=== PATIENT | female | born 1940 | race Caucasian/White ===

== ENCOUNTER 2017-02-03 02:21 | Emergency (ER) | payer BC ==
[2017-02-03] MEDS ORDERED: HYDROmorphone 1 MG/ML Syringe IVPUSH ONE ×2 (02:42→04:35)
[2017-02-03] MEDS ORDERED: Metoclopramide 10 MG/2 ML SDV IVPUSH ONE (02:43)
[2017-02-03] MEDS ORDERED: Sodium Chloride 0.9% 1,000 ML IV ONE (02:44)
[2017-02-03] MEDS ORDERED: Iopamidol 612 MG/ML 75 ML Bottle IVPUSH ONE (03:11)
[2017-02-03 04:38] VITALS: BP 146/81
--- NOTE | 2017-02-03 04:40 | EDM.PDOC ---
ED HPI GI/ABDOMINAL - General Chief Complaint: Abdominal Pain Stated Complaint: ABD PAIN Time Seen by Provider: 02/03/17 02:30 Source of Information: Reports: Patient History Limitations: Reports: No limitations - History of Present Illness INITIAL COMMENTS - FREE TEXT/NARRATIVE: c/o sever lower abdominal pain worsening. Started yesterday with ache tonight severe intermittent pressure cramping. Nause no vomiting, no fever, 3 loose stools yesterday. non tonight. Hx colon resection 6 months ago for cancer Location: RLQ Quality: Reports: ache, cramping, fullness Severity: severe - Related Data Allergies/ADRs: Allergies Allergy/AdvReac Type Severity Reaction Status Date / Time amoxicillin Allergy Cannot Verified 02/03/17 02:42 Remember cefuroxime Allergy Cannot Verified 02/03/17 02:42 Remember levofloxacin Allergy Cannot Verified 02/03/17 02:42 Remember ofloxacin [From Ocuflox] Allergy Cannot Verified 02/03/17 02:42 Remember sulfamethoxazole Allergy Cannot Verified 02/03/17 02:42 [From Bactrim] Remember trimethoprim [From Bactrim] Allergy Cannot Verified 02/03/17 02:42 Remember tramadol AdvReac Mild Cannot Verified 02/03/17 02:42 Remember Home Meds: Home Meds Fluticasone/Salmeterol [Advair 250-50 Diskus] 1 puff INH BID 03/19/15 [History] Fortify 1 tab PO DAILY 03/19/15 [History] Levothyroxine 125 mcg PO ACBREAKFAST 03/19/15 [History] Lisinopril 10 mg PO DAILY 03/19/15 [History] Omeprazole [Prilosec] 20 mg PO DAILY 03/19/15 [History] Ubidecarenone [Coq10] 200 mg PO DAILY 03/19/15 [History] atorvaSTATin [Lipitor] 10 mg PO DAILY 03/19/15 [History] Lidocaine [Lidocaine] 1 patch TOP DAILY 08/04/16 [History] Ondansetron [Ondansetron ODT] 4 mg PO Q6HR 08/04/16 [History] traMADol HCl [Tramadol HCl] 50 mg PO Q6HR PRN 08/04/16 [History] Past Medical History Cardiovascular History: Reports: High cholesterol Respiratory History: Reports: Asthma Gastrointestinal History: Reports: GERD, Other (see below) Other Gastrointestinal History: gastric Ulcer Other Genitourinary History: post operative urinary retention Other OB/BYN History: Total hysterectomy Endocrine/Metabolic History: Reports: Hypothyroidism - Past Surgical History Other GI Surgeries/Procedures: 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 small bowel obstruction Social & Family History - Tobacco Use Smoking Status *Q: Never Smoker - Caffeine Use Caffeine Use: Reports: Coffee, Tea - Alcohol Use Days Per Week of Alcohol Use: 5 Number of Drinks Per Day: 1 Total Drinks Per Week: 5 Date of Last Drink: 02/02/17 - Recreational Drug Use Recreational Drug Use: No Drug Use in Last 12 Months: No ED ROS GENERAL - Review of Systems Review Of Systems: See Below Constitutional: Reports: decreased appetite HEENT: Reports: No symptoms Respiratory: Reports: No Symptoms Cardiovascular: Reports: No symptoms GI/Abdominal: Reports: Abdominal pain (dull ache since yesterday, tonight onset if intermittent severe pain RLQ, [place] no vomiting), Diarrhea (3 loose stools yesterday), Distension (mild), Other (hx colon resection 6 months ago for neuroendocrine tumor) : Reports: no symptoms Skin: Reports: no symptoms Neurological: Reports: No Symptoms Psychiatric: Reports: Anxiety ED EXAM, GI/ABD - Physical Exam Exam: See Below Exam Limited By: No limitations General Appearance: alert, severe distress Ears: normal external exam Nose: normal inspection Throat/Mouth: Normal inspection Head: atraumatic, normocephalic Neck: normal inspection Respiratory/Chest: no respiratory distress, lungs clear, normal breath sounds Cardiovascular: normal peripheral pulses, regular rate, rhythm GI/Abdominal: hypoactive bowel sounds, tenderness (greatest right lower quad with light palpation), distention (mild) Back Exam: normal inspection. No: CVA tenderness (L), CVA tenderness (R) Extremities: normal inspection Neurological: alert, oriented Psychiatric: normal affect Skin Exam: Warm, Dry, Intact, Normal color Course - Vital Signs Last Recorded V/S: Last Vital Signs Temp 97.4 F 02/03/17 04:37 Pulse 94 02/03/17 04:37 Resp 17 02/03/17 04:37 BP 146/81 H 02/03/17 04:37 Pulse Ox 100 02/03/17 04:37 - Orders/Labs/Meds Orders: Active Orders 24 hr Category Date Time Status Abdomen Pelvis w Cont [CT] Urgent Exams 02/03/17 02:40 Taken Sodium Chloride 0.9% [Normal Saline] 1,000 ml Med 02/03/17 02:44 Active IV .BOLUS Medication Orders Sodium Chloride (Normal Saline) 1,000 mls @ 250 mls/hr IV .BOLUS ONE Stop: 02/03/17 06:43 Last Admin: 02/03/17 02:48 Dose: 250 mls/hr Labs: Laboratory Tests 02/03/17 02/03/17 02/03/17 Range/Units 02:40 02:40 02:40 WBC 7.2 (5.0-10.0) 10^3/uL RBC 4.71 (4.2-5.4) 10^6/uL Hgb 14.6 (12.0-16.0) g/dL Hct 43.2 (37.0-47.0) % MCV 91.7 (80-100) fL MCH 31.0 (27.0-34.0) pg MCHC 33.8 (33.0-35.0) g/dL Plt Count 196 (150-450) 10^3/uL Neut % (Auto) 61.0 (42.2-75.2) % Lymph % (Auto) 24.9 (20.5-50.1) % [place] % (Auto) 10.4 H (2-8) % Eos % (Auto) 2.9 (1.0-3.0) % Baso % (Auto) 0.8 (0.0-1.0) % Sodium 139 (135-145) mmol/L Potassium 3.9 (3.6-5.0) mmol/L Chloride 106 (101-111) mmol/L Carbon Dioxide 27.0 (21.0-31.0) mmol/L Anion Gap 9.9 BUN 18 (7-18) mg/dL Creatinine 1.1 (0.6-1.3) mg/dL Est Cr Clr Drug Dosing 36.40 mL/min Estimated GFR (MDRD) 48 BUN/Creatinine Ratio 16.36 Glucose 109 H (74-105) mg/dL Lactic Acid 1.1 (0.5-2.2) mmol/L Calcium 8.8 (8.4-10.2) mg/dl Total Bilirubin 0.6 (0.2-1.0) mg/dL AST 20 (10-42) IU/L ALT 15 (10-60) IU/L Alkaline Phosphatase 75 (42-121) IU/L Total Protein 6.4 L (6.7-8.2) g/dl Albumin 3.6 (3.2-5.5) g/dl Globulin 2.8 Albumin/Globulin Ratio 1.29 Amylase 55 (28-100) U/L Lipase 17 L (22-51) U/L Urine Color (YELLOW) Urine Appearance (CLEAR) Urine pH (5.0-9.0) Ur Specific [place] (1.005-1.030) Urine Protein (NEGATIVE) Urine Glucose (UA) (NEGATIVE) Urine Ketones (NEGATIVE) Urine Occult Blood (NEGATIVE) Urine Nitrite (NEGATIVE) Urine Bilirubin (NEGATIVE) Urine Urobilinogen (0.2-1.0) mg/dL Ur Leukocyte Esterase (NEGATIVE) Urine RBC /HPF Urine WBC (0-5/HPF) /HPF Ur Epithelial Cells /HPF 02/03/17 Range/Units 04:00 WBC (5.0-10.0) 10^3/uL RBC (4.2-5.4) 10^6/uL Hgb (12.0-16.0) g/dL Hct (37.0-47.0) % MCV (80-100) fL MCH (27.0-34.0) pg MCHC (33.0-35.0) g/dL Plt Count (150-450) 10^3/uL Neut % (Auto) (42.2-75.2) % Lymph % (Auto) (20.5-50.1) % [place] % (Auto) (2-8) % Eos % (Auto) (1.0-3.0) % Baso % (Auto) (0.0-1.0) % Sodium (135-145) mmol/L Potassium (3.6-5.0) mmol/L Chloride (101-111) mmol/L Carbon Dioxide (21.0-31.0) mmol/L Anion Gap BUN (7-18) mg/dL Creatinine (0.6-1.3) mg/dL Est Cr Clr Drug Dosing mL/min Estimated GFR (MDRD) BUN/Creatinine Ratio Glucose (74-105) mg/dL Lactic Acid (0.5-2.2) mmol/L Calcium (8.4-10.2) mg/dl Total Bilirubin (0.2-1.0) mg/dL AST (10-42) IU/L ALT (10-60) IU/L Alkaline Phosphatase (42-121) IU/L Total Protein (6.7-8.2) g/dl Albumin (3.2-5.5) g/dl Globulin Albumin/Globulin Ratio Amylase (28-100) U/L Lipase (22-51) U/L Urine Color Yellow (YELLOW) Urine Appearance Clear (CLEAR) Urine pH 6.5 (5.0-9.0) Ur Specific [place] 1.010 (1.005-1.030) Urine Protein Negative (NEGATIVE) Urine Glucose (UA) Negative (NEGATIVE) Urine Ketones Negative (NEGATIVE) Urine Occult Blood Negative (NEGATIVE) Urine Nitrite Negative (NEGATIVE) Urine Bilirubin Negative (NEGATIVE) Urine Urobilinogen 0.2 (0.2-1.0) mg/dL Ur Leukocyte Esterase Small H (NEGATIVE) Urine RBC 0-5 /HPF Urine WBC 5-10 H (0-5/HPF) /HPF Ur Epithelial Cells Few /HPF Meds: Medications Generic Name Dose Route Start Last Admin Trade Name Freq PRN Reason Stop Dose Admin Sodium Chloride 1,000 mls @ 250 mls/hr 02/03/17 02:44 02/03/17 02:48 Normal Saline IV 02/03/17 06:43 250 mls/hr .BOLUS ONE Administration Discontinued Medications Generic Name Dose Route Start Last Admin Trade Name Freq PRN Reason Stop Dose Admin Hydromorphone HCl 1 mg 02/03/17 02:42 02/03/17 02:47 Dilaudid IVPUSH 02/03/17 02:43 1 mg ONETIME ONE Administration Hydromorphone HCl 1 mg 02/03/17 04:35 02/03/17 04:40 Dilaudid IVPUSH 02/03/17 04:36 1 mg ONETIME ONE Administration Iopamidol 75 ml 02/03/17 03:11 02/03/17 03:39 Isovue-300 (61%) IVPUSH 02/03/17 03:12 75 ml ONETIME ONE Administration Metoclopramide HCl 10 mg 02/03/17 02:43 02/03/17 02:47 Reglan IVPUSH 02/03/17 02:44 10 mg ONETIME ONE Administration - Radiology Interpretation Free Text/Narrative:: Small Bowel obstruction on CT, stable liver nodule, small ascites. - Re-Assessments/Exams Free Text/Narrative Re-Assessment/Exam: Pain improved with Dilaudid, able to rest while awaiting CT results. TC consult Dr. Esparza, accepting of patient in transfer. Vitals stable. No vomiting. Pain returning repeat Dilaudid. Transfer via [facility]> Departure - Departure Time of Disposition: 04:49 Disposition: DC/Tfer to Acute Hospital 02 Condition: undetermined Clinical Impression: Small bowel obstruction, History of malignant neuroendocrine neoplasm Forms: ED Department Discharge - My Orders Last 24 Hours: My Active Orders 02/03/17 02:40 Abdomen Pelvis w Cont [CT] Urgent 02/03/17 02:44 Sodium Chloride 0.9% [Normal Saline] 1,000 ml IV .BOLUS - Assessment/Plan Last 24 Hours: My Active Orders 02/03/17 02:40 Abdomen Pelvis w Cont [CT] Urgent 02/03/17 02:44 Sodium Chloride 0.9% [Normal Saline] 1,000 ml IV .BOLUS
== END 2017-02-03 05:05 ==
LOC: DL.ED 02:21
DX: K56.60 Unspecified intestinal obstruction (principal); E78.00 Pure hypercholesterolemia, unspecified; J45.909 Unspecified asthma, uncomplicated; K21.9 Gastro-esophageal reflux disease without esophagitis; E03.9 Hypothyroidism, unspecified; Z85.038 Personal history of other malignant neoplasm of large intestine; Z88.8 Allergy status to other drugs, medicaments and biological substances; Z79.899 Other long term (current) drug therapy
CPT/HCPCS: 36415; 74177; 80053; 81001; 82150; 83605; 83690; 85025; 96365; 96366; 96375; 96376; 99285; J1170; J2765; J7030; Q9967

== ENCOUNTER 2018-06-23 00:13 | Emergency (ER) | payer BC ==
[2018-06-23 00:21] VITALS: BP 149/91
[2018-06-23] MEDS ORDERED: Sodium Chloride 0.9% 1,000 ML IV SCH (00:30)
--- NOTE | 2018-06-23 00:47 | EDM.PDOC ---
ED HPI GENERAL MEDICAL PROBLEM - General Chief Complaint: Abdominal Pain Stated Complaint: STOMACH PAIN [id number] Time Seen by Provider: 06/23/18 00:44 Source of Information: Reports: Patient History Limitations: Reports: No Limitations - History of Present Illness INITIAL COMMENTS - FREE TEXT/NARRATIVE: onset RLQ pain just like last time when she had a bowel obstruction from a closing off where the ends joined up and sent to [facility]. had h/o cancer with 36" removal. - Related Data Allergies Allergy/AdvReac Type Severity Reaction Status Date / Time amoxicillin Allergy Cannot Verified 02/03/17 02:42 Remember cefuroxime Allergy Cannot Verified 02/03/17 02:42 Remember levofloxacin Allergy Cannot Verified 02/03/17 02:42 Remember ofloxacin [From Ocuflox] Allergy Cannot Verified 02/03/17 02:42 Remember sulfamethoxazole Allergy Cannot Verified 02/03/17 02:42 [From Bactrim] Remember trimethoprim [From Bactrim] Allergy Cannot Verified 02/03/17 02:42 Remember tramadol AdvReac Mild Cannot Verified 02/03/17 02:42 Remember Home Meds: Home Meds Fluticasone/Salmeterol [Advair 250-50 Diskus] 1 puff INH BID 03/19/15 [History] Fortify 1 tab PO DAILY 03/19/15 [History] Levothyroxine 125 mcg PO ACBREAKFAST 03/19/15 [History] Lisinopril 10 mg PO DAILY 03/19/15 [History] Omeprazole [Prilosec] 20 mg PO DAILY 03/19/15 [History] Ubidecarenone [Coq10] 200 mg PO DAILY 03/19/15 [History] atorvaSTATin [Lipitor] 10 mg PO DAILY 03/19/15 [History] Lidocaine 1 patch TOP DAILY 08/04/16 [History] Ondansetron [Ondansetron ODT] 4 mg PO Q6HR 08/04/16 [History] traMADol HCl [Tramadol HCl] 50 mg PO Q6HR PRN 08/04/16 [History] Past Medical History Cardiovascular History: Reports: High Cholesterol Respiratory History: Reports: Asthma Gastrointestinal History: Reports: GERD Other Gastrointestinal History: gastric Ulcer Other Genitourinary History: post operative urinary retention Other [employer] History: Total hysterectomy Endocrine/Metabolic History: Reports: Hypothyroidism Oncologic (Cancer) History: Reports: Colon, Liver - Past Surgical History GI Surgical History: Reports: Small Bowel Female Surgical History: Reports: Hysterectomy Social & Family History - Tobacco Use Smoking Status *Q: Never Smoker Second Hand Smoke Exposure: No - Caffeine Use Caffeine Use: Reports: Coffee, Tea - Recreational Drug Use Recreational Drug Use: No ED ROS GENERAL - Review of Systems Review Of Systems: ROS reveals no pertinent complaints other than HPI. ED EXAM, GI/ABD - Physical Exam Exam: See Below Exam Limited By: No Limitations General Appearance: Alert, WD/WN, Mild Distress, Moderate Distress, Other (pain) Ears: Hearing Grossly Normal Throat/Mouth: Normal Voice, No Airway Compromise Head: Atraumatic Neck: Non-Tender, Full Range of Motion Respiratory/Chest: No Respiratory Distress Cardiovascular: Regular Rate, Rhythm GI/Abdominal Exam: Tender, Other (BS hyper). No: Distended, Guarding, Rigid, Rebound Neurological: Alert, Oriented, Normal Cognition, Normal Gait, No Motor/Sensory Deficits Psychiatric: Tearful Skin Exam: Warm, Dry, Normal Color Lymphatic: No Adenopathy Course - Vital Signs Last Recorded V/S: Last Vital Signs Temp 36.6 C 06/23/18 00:16 Pulse 96 06/23/18 00:16 Resp 18 06/23/18 00:16 BP 149/91 H 06/23/18 00:16 Pulse Ox 99 06/23/18 00:16 - Orders/Labs/Meds Orders: Active Orders 24 hr Category Date Time Status Dicyclomine [Bentyl] Med 06/23/18 02:53 Discontinued 20 mg PO ONETIME ONE Sodium Chloride 0.9% [Normal Saline] 1,000 ml Med 06/23/18 00:30 Active IV ASDIRECTED Medication Orders Dicyclomine HCl (Bentyl) 20 mg PO ONETIME ONE Stop: 06/23/18 02:54 Sodium Chloride (Normal Saline) 1,000 mls @ 500 mls/hr IV ASDIRECTED CANDICE Last Admin: 06/23/18 00:44 Dose: 500 mls/hr Labs: Laboratory Tests 06/23/18 06/23/18 06/23/18 Range/Units 00:23 00:23 00:23 WBC 6.6 (5.0-10.0) 10^3/uL RBC 4.75 (4.2-5.4) 10^6/uL Hgb 14.5 (12.0-16.0) g/dL Hct 43.6 (37.0-47.0) % MCV 91.8 (80-100) fL MCH 30.5 (27.0-34.0) pg MCHC 33.3 (33.0-35.0) g/dL Plt Count 208 (150-450) 10^3/uL Neut % (Auto) 56.6 (42.2-75.2) % Lymph % (Auto) 30.7 (20.5-50.1) % [place] % (Auto) 9.7 H (2-8) % Eos % (Auto) 2.7 (1.0-3.0) % Baso % (Auto) 0.3 (0.0-1.0) % Sodium 140 (135-145) mmol/L Potassium 4.0 (3.6-5.0) mmol/L Chloride 104 (101-111) mmol/L Carbon Dioxide 28.0 (21.0-31.0) mmol/L Anion Gap 12.0 BUN 17 (7-18) mg/dL Creatinine 1.1 (0.6-1.3) mg/dL Est Cr Clr Drug Dosing 35.81 mL/min Estimated GFR (MDRD) 48 BUN/Creatinine Ratio 15.45 Glucose 103 (74-105) mg/dL Calcium 9.0 (8.4-10.2) mg/dl Total Bilirubin 0.6 (0.2-1.0) mg/dL AST 19 (10-42) IU/L ALT 15 (10-60) IU/L Alkaline Phosphatase 74 (42-121) IU/L C-Reactive Protein 0.5 (0.0-1.3) mg/dL Total Protein 7.0 (6.7-8.2) g/dl Albumin 4.0 (3.2-5.5) g/dl Globulin 3.0 Albumin/Globulin Ratio 1.33 Meds: Medications Generic Name Dose Route Start Last Admin Trade Name Freq PRN Reason Stop Dose Admin Dicyclomine HCl 20 mg 06/23/18 02:53 Bentyl PO 06/23/18 02:54 ONETIME ONE Sodium Chloride 1,000 mls @ 500 mls/hr 06/23/18 00:30 06/23/18 00:44 Normal Saline IV 500 mls/hr ASDIRECTED CANDICE Administration Discontinued Medications Generic Name Dose Route Start Last Admin Trade Name Zainab PRN Reason Stop Dose Admin Iopamidol 100 ml 06/23/18 01:11 06/23/18 01:58 Isovue-300 (61%) IVPUSH 06/23/18 01:12 100 ml ONETIME ONE Administration - Re-Assessments/Exams Free Text/Narrative Re-Assessment/Exam: 06/23/18 00:46 re-exam; states pain suddenly gone 06/23/18 02:58 results discussed with pt who remains mostly pain free with an occasional cramp. Departure - Departure Time of Disposition: 02:58 Disposition: Home, Self-Care 01 Condition: Fair Clinical Impression: Pain in the abdomen Qualifiers: Abdominal location: right lower quadrant Qualified Code(s): R10.31 - Right lower quadrant pain - Discharge Information Forms: ED Department Discharge Additional Instructions: 1) avoid solid foods next 4 to 5 days 2) have broth, juice, soft diet 3) recheck if there is any change or concern - My Orders Last 24 Hours: My Active Orders 06/23/18 00:30 Sodium Chloride 0.9% [Normal Saline] 1,000 ml IV ASDIRECTED 06/23/18 02:53 Dicyclomine [Bentyl] 20 mg PO ONETIME ONE - Assessment/Plan Last 24 Hours: My Active Orders 06/23/18 00:30 Sodium Chloride 0.9% [Normal Saline] 1,000 ml IV ASDIRECTED 06/23/18 02:53 Dicyclomine [Bentyl] 20 mg PO ONETIME ONE
[2018-06-23] MEDS ORDERED: Iopamidol 612 MG/ML 100 ML Bottle IVPUSH ONE (01:11)
[2018-06-23] MEDS ORDERED: Dicyclomine 10 MG Cap PO ONE (02:53)
== END 2018-06-23 03:11 | disposition home or self-care (01) ==
LOC: DL.ED 00:13
DX: R10.31 Right lower quadrant pain (principal); Z88.1 Allergy status to other antibiotic agents; Z88.5 Allergy status to narcotic agent; Z88.2 Allergy status to sulfonamides; Z79.899 Other long term (current) drug therapy; Z90.710 Acquired absence of both cervix and uterus
CPT/HCPCS: 36415; 74177; 80053; 85025; 86140; 96360; 96361; 99284; A9270; J7030; Q9967

== ENCOUNTER → 2019-01-18 | Outpatient (CLI) | payer BC ==
[~2019-01-18] MED LIST: Barium Sulfate w/v 2.1% Oral Susp 450 ML Bottle PO ONE; Iopamidol 612 MG/ML 100 ML Bottle IVPUSH ONE
--- NOTE | 2019-01-20 13:19 | CT ---
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 "ablation" 2 years ago). Reevaluate please. Scan technique: Volume acquisition of data 3 phase exam of the abdomen and pelvis obtained after oral ingestion 2 bottles of Redicat barium and before/during/after intravenous infusion of 98 cc nonionic Isovue 300 contrast (4 cc/s via injector) while patient was lying supine on the Siemens multislice scanner [place], [place]. All data archived in the PACS system for storage, reformatting axial/sagittal/coronal planes and study. (11 CT exams since May 2016) Interpretation: 1. Dependent gallbladder "sludge" and/or tiny stones. No gallbladder wall inflammation or abnormal hepatic ductal dilatation. 2. Reproducible tiny cystlike lesions near the alfonso hepatis (right lobe of the liver) axial scan slices #18-20 and coronal venous phase images #31-32, unchanged. Isolated cystic lesion dome of the left lobe of the liver (coronal #18-19) also unchanged. 3. No discrete new intrahepatic cystic or solid mass lesions. No new pelvic, mesenteric or retroperitoneal lymphadenopathy. 4. Small hiatus hernia. Normal appearing terminal ileum and normal caliber small intestine line. No new intrinsic/extrinsic small bowel mass, stricture or signs of mechanical bowel obstruction. Stool-filled right colon. No ascites or free intraperitoneal air. 5. Densely calcified "cast" normal caliber aortoiliac vessels. No sign of mesenteric ischemia, aneurysm or dissection. 6. Symmetric normal kidneys. No cortical mass, nephrolithiasis or obstructive uropathy. Urinary bladder unremarkable. 7. Age/degenerative appropriate osteopenia. Scoliosis/hypertrophic arthritis. No pathologic skeletal lesion or new fracture. CONCLUSION: No evidence recurrent, metastatic or new primary malignancy abdomen/pelvis.
== END ==
LOC: DL.CT 08:26
PROVIDERS: ATTEND Internal Medicine Hematology & Oncology
DX: C7A.019 Malignant carcinoid tumor of the small intestine, unspecified portion (principal); C78.7 Secondary malignant neoplasm of liver and intrahepatic bile duct; Z98.890 Other specified postprocedural states
CPT/HCPCS: 74178; Q9967

== ENCOUNTER 2021-01-12 21:16 | Emergency (ER) | payer BC ==
--- NOTE | 2021-01-12 22:47 | EDM.PDOC ---
ED HPI GENERAL MEDICAL PROBLEM - General Stated Complaint: STOMACH PAINS Time Seen by Provider: 01/12/21 22:46 Source of Information: Reports: Patient, RN, RN Notes Reviewed History Limitations: Reports: No Limitations - History of Present Illness INITIAL COMMENTS - FREE TEXT/NARRATIVE: Patient presents to the ED via personal vehicle for RLQ abdominal pain. The patient characterizes the pain as cramping in nature and notes it began about one hour ago. 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 She is currently receiving radiation for liver nodules via Dr. Ellis at [facility] in [place]. She denies history of bowel obstruction and does not experience issues with chronic constipation. She states she is s/p salpingoophertecomy but otherwise has all of her abdominal organs. She denies recent illness, fever, shaking chills, nausea, vomiting, diarrhea, melena, hematochezia, dysuria, or hematuria. She denies history of an active COVID infection and is fully vaccinated against COVID. She denies tobacco, alcohol, or recreational drug use. Right Lower Abdomen Pain Score (Numeric/FACES): 4 - Related Data Allergies Allergy/AdvReac Type Severity Reaction Status Date / Time amoxicillin Allergy Cannot Verified 02/03/17 02:42 Remember atorvastatin Allergy Muscle Verified 10/15/19 10:24 Aches cefuroxime Allergy Cannot Verified 02/03/17 02:42 Remember levofloxacin Allergy Cannot Verified 02/03/17 02:42 Remember ofloxacin [From Ocuflox] Allergy Cannot Verified 02/03/17 02:42 Remember sulfamethoxazole Allergy Cannot Verified 02/03/17 02:42 [From Bactrim] Remember trimethoprim [From Bactrim] Allergy Cannot Verified 02/03/17 02:42 Remember tramadol AdvReac Mild Cannot Verified 02/03/17 02:42 Remember Home Meds: Home Meds Fluticasone/Salmeterol [Advair 250-50 Diskus] 1 puff INH BID 03/19/15 [History] Fortify 1 tab PO DAILY 03/19/15 [History] Levothyroxine 125 mcg PO ACBREAKFAST 03/19/15 [History] Lisinopril 10 mg PO DAILY 03/19/15 [History] Omeprazole [Prilosec] 20 mg PO DAILY 03/19/15 [History] Ubidecarenone [Coq10] 200 mg PO DAILY 03/19/15 [History] atorvaSTATin [Lipitor] 10 mg PO DAILY 03/19/15 [History] Lidocaine 1 patch TOP DAILY 08/04/16 [History] Ondansetron [Ondansetron ODT] 4 mg PO Q6HR 08/04/16 [History] traMADol HCl [Tramadol HCl] 50 mg PO Q6HR PRN 08/04/16 [History] Past Medical History Cardiovascular History: Reports: High Cholesterol Respiratory History: Reports: Asthma Gastrointestinal History: Reports: GERD Other Gastrointestinal History: gastric Ulcer Other Genitourinary History: post operative urinary retention Other [employer] History: Total hysterectomy Endocrine/Metabolic History: Reports: Hypothyroidism Oncologic (Cancer) History: Reports: Colon, Liver - Past Surgical History GI Surgical History: Reports: Small Bowel Female Surgical History: Reports: Hysterectomy Social & Family History - Caffeine Use Caffeine Use: Reports: Coffee, Tea ED ROS GENERAL - Review of Systems Review Of Systems: Comprehensive ROS is negative, except as noted in HPI. ED EXAM, GI/ABD - Physical Exam Exam: See Below Exam Limited By: No Limitations General Appearance: Alert, Mild Distress (Abdominal pain) Eyes: Bilateral: Normal Appearance, EOMI Throat/Mouth: Normal Voice, No Airway Compromise. No: Normal Oropharynx (Dry mucous membranes) Head: Atraumatic, Normocephalic Neck: Normal Inspection, Supple, Non-Tender, Full Range of Motion Respiratory/Chest: No Respiratory Distress, Lungs Clear, Normal Breath Sounds, No Accessory Muscle Use, Chest Non-Tender Cardiovascular: Normal Peripheral Pulses, Regular Rate, Rhythm, No Edema, No Gallop, No JVD, No Murmur, No Rub GI/Abdominal Exam: No Organomegaly, No Abnormal Bruit, No Mass, Pelvis Stable, Distended, Guarding, Tender (To bilateral lower quadrants, right greater than left), Abnormal Bowel Sounds (Hypoactive bowel sounds to bilateral lower quadrants), Other (Scarring to midline abdomen) (Female) Exam: Deferred Rectal (Female) Exam: Deferred Back Exam: Normal Inspection, Full Range of Motion. No: CVA Tenderness (L), CVA Tenderness (R) Extremities: Normal Inspection, Normal Range of Motion, Non-Tender, No Pedal Edema, Normal Capillary Refill Neurological: Alert, Oriented, CN II-XII Intact, Normal Cognition, Normal Gait, No Motor/Sensory Deficits Psychiatric: Normal Affect, Anxious Skin Exam: Warm, Dry, Intact, Normal Color, No Rash. No: Ecchymosis, Erythema, Jaundice, Mottled, Pallor, Petechiae Course - Vital Signs Last Recorded V/S: Last Vital Signs Temp 97.7 F 01/12/21 22:30 Pulse 95 01/12/21 22:30 Resp 18 01/12/21 22:30 BP 174/81 H 01/12/21 22:30 Pulse Ox 97 01/12/21 22:30 - Orders/Labs/Meds Labs: Laboratory Tests 01/12/21 01/12/21 01/12/21 Range/Units 22:38 23:03 23:03 WBC 7.3 (5.0-10.0) 10^3/uL RBC 4.89 (4.2-5.4) 10^6/uL Hgb 15.3 (12.0-16.0) g/dL Hct 46.0 (37.0-47.0) % MCV 94.1 (80-100) fL MCH 31.3 (27.0-34.0) pg MCHC 33.3 (33.0-35.0) g/dL Plt Count 176 (150-450) 10^3/uL Neut % (Auto) 77.1 H (42.2-75.2) % Lymph % (Auto) 11.5 L (20.5-50.1) % [place] % (Auto) 9.2 H (2-8) % Eos % (Auto) 1.8 (1.0-3.0) % Baso % (Auto) 0.4 (0.0-1.0) % PT (9.0-12.0) SEC INR (0.9-1.2) APTT (22.0-34.0) SEC Sodium 140 (136-145) mmol/L Potassium 4.0 (3.5-5.1) mmol/L Chloride 102 (98-107) mmol/L Carbon Dioxide 27 (21-32) mmol/L Anion Gap 15.0 H (7-13) mEq/L BUN 15 (7-18) mg/dL Creatinine 1.14 H (0.55-1.02) mg/dL Est Cr Clr Drug Dosing 31.47 mL/min Estimated GFR (MDRD) 46 BUN/Creatinine Ratio 13.2 (No establ ref range) Glucose 94 (70-99) mg/dL Lactic Acid (0.4-2.0) mmol/L Calcium 9.1 (8.5-10.1) mg/dL Magnesium 2.1 (1.8-2.4) mg/dL Total Bilirubin 0.5 (0.2-1.0) mg/dL AST 40 H (15-37) U/L ALT 62 H (14-59) U/L Alkaline Phosphatase 231 H (46-116) U/L C-Reactive Protein 0.5 (0.0-0.9) mg/dL Total Protein 7.3 (6.4-8.2) g/dL Albumin 3.6 (3.4-5.0) g/dL Globulin 3.7 Albumin/Globulin Ratio 1.0 Urine Color Yellow (YELLOW) Urine Appearance Slightly cloudy (CLEAR) Urine pH 6.5 (5.0-9.0) Ur Specific [place] 1.015 (1.005-1.030) Urine Protein Negative (NEGATIVE) Urine Glucose (UA) Negative (NEGATIVE) Urine Ketones Negative (NEGATIVE) Urine Occult Blood Negative (NEGATIVE) Urine Nitrite Negative (NEGATIVE) Urine Bilirubin Negative (NEGATIVE) Urine Urobilinogen 0.2 (0.2-1.0) mg/dL Ur Leukocyte Esterase Small H (NEGATIVE) Urine RBC 0-5 /HPF Urine WBC 10-20 H (0-5/HPF) /HPF Ur Epithelial Cells Rare (NOT SEEN) /HPF Urine Bacteria Moderate H (0-FEW/HPF) /HPF Urine Mucus Rare (NOT SEEN) /LPF SARS-CoV-2 RNA (EUN) (NEGATIVE) 01/12/21 01/12/21 01/13/21 Range/Units 23:03 23:03 00:58 WBC (5.0-10.0) 10^3/uL RBC (4.2-5.4) 10^6/uL Hgb (12.0-16.0) g/dL Hct (37.0-47.0) % MCV (80-100) fL MCH (27.0-34.0) pg MCHC (33.0-35.0) g/dL Plt Count (150-450) 10^3/uL Neut % (Auto) (42.2-75.2) % Lymph % (Auto) (20.5-50.1) % [place] % (Auto) (2-8) % Eos % (Auto) (1.0-3.0) % Baso % (Auto) (0.0-1.0) % PT 10.0 (9.0-12.0) SEC INR 1.0 (0.9-1.2) APTT 24.5 (22.0-34.0) SEC Sodium (136-145) mmol/L Potassium (3.5-5.1) mmol/L Chloride (98-107) mmol/L Carbon Dioxide (21-32) mmol/L Anion Gap (7-13) mEq/L BUN (7-18) mg/dL Creatinine (0.55-1.02) mg/dL Est Cr Clr Drug Dosing mL/min Estimated GFR (MDRD) BUN/Creatinine Ratio (No establ ref range) Glucose (70-99) mg/dL Lactic Acid 0.7 (0.4-2.0) mmol/L Calcium (8.5-10.1) mg/dL Magnesium (1.8-2.4) mg/dL Total Bilirubin (0.2-1.0) mg/dL AST (15-37) U/L ALT (14-59) U/L Alkaline Phosphatase (46-116) U/L C-Reactive Protein (0.0-0.9) mg/dL Total Protein (6.4-8.2) g/dL Albumin (3.4-5.0) g/dL Globulin Albumin/Globulin Ratio Urine Color (YELLOW) Urine Appearance (CLEAR) Urine pH (5.0-9.0) Ur Specific [place] (1.005-1.030) Urine Protein (NEGATIVE) Urine Glucose (UA) (NEGATIVE) Urine Ketones (NEGATIVE) Urine Occult Blood (NEGATIVE) Urine Nitrite (NEGATIVE) Urine Bilirubin (NEGATIVE) Urine Urobilinogen (0.2-1.0) mg/dL Ur Leukocyte Esterase (NEGATIVE) Urine RBC /HPF Urine WBC (0-5/HPF) /HPF Ur Epithelial Cells (NOT SEEN) /HPF Urine Bacteria (0-FEW/HPF) /HPF Urine Mucus (NOT SEEN) /LPF SARS-CoV-2 RNA (UEN) Negative (NEGATIVE) Meds: Medications Discontinued Medications Generic Name Dose Route Start Last Admin Trade Name Zainab PRN Reason Stop Dose Admin Hydromorphone HCl 1 mg 01/13/21 00:48 01/13/21 00:54 Hydromorphone 1 Mg/Ml Syringe IVPUSH 01/13/21 00:49 1 mg ONETIME ONE Administration Iopamidol 100 ml 01/12/21 23:08 01/13/21 00:00 Iopamidol 612 Mg/Ml 100 Ml Bottle IVPUSH 01/12/21 23:09 75 ml ONETIME ONE Administration - Radiology Interpretation Free Text/Narrative:: [facility] Final Radiology Report Call: [phone] assistance Online chat: [email or web address] Name: TSERING DE LEON Age: 80Years F Date: 01/12/2021 SSN: -- : [id number] Study: CT ABDOMEN PELVIS W CONT Requesting Physician: Tiffany Osorio Images: [id number] Addl Studies: Provided Clinical History: RLQ pain; r/o appendicitis Contrast: With Contrast Medium: Isovue Contrast Amount: 75 mL Contrast Method: Intravenous (IV) Page 1 of 2 PROCEDURE INFORMATION: Exam: CT Abdomen And Pelvis With Contrast Exam date and time: 01/12/2021 11:35 PM Age: 80 years old Clinical indication: Abdominal pain; Localized; Right lower quadrant (rlq); Prior surgery; Surgery date: 6+ months; Surgery type: Hysterectomy; Additional info: Rlq pain; R/O appendicitis TECHNIQUE: Imaging protocol: Computed tomography of the abdomen and pelvis with contrast. Radiation optimization: All CT scans at this facility use at least one of these dose optimization techniques: automated exposure control; mA and/or kV adjustment per patient size (includes targeted exams where dose is matched to clinical indication); or iterative reconstruction. Contrast material: ISOVUE; Contrast volume: 75 ml; Contrast route: INTRAVENOUS (IV); COMPARISON: CT Abdomen w wo Cont 11/28/2020 9:34 AM FINDINGS: Lungs: Minor posterior lung base atelectasis. 2 mm granuloma in the lingular segment of the left upper lobe. Pleural spaces: No pleural effusion. Heart: Normal heart size. No pericardial effusion. Liver: Normal liver size. Heterogeneous appearance of the right lobe of the liver without distinct mass. Similar features are present 11/28/2020. Significance of this is uncertain. This could represent a process such as hepatitis. Areas of geographic fat cannot be excluded. A benign low-attenuation focus adjacent to the falciform ligament appears to represent an 8 mm cyst. Intrahepatic portal and hepatic veins are patent. Gallbladder and bile ducts: Gallstone. No biliary dilatation or gallbladder wall thickening. Pancreas: Mild pancreatic atrophy. No acute inflammation. Spleen: Normal. No splenomegaly. Adrenal glands: The adrenal glands are normal in size and contour bilaterally. Kidneys and ureters: The kidneys bilaterally are unremarkable. Normal enhancement. No hydronephrosis. No calculi. Stomach and bowel: Gastric morphology is unremarkable. No edema. No gastric outl et obstruction. Moderate size hiatal hernia. Nonspecific appearance. Small bowel loops show fluid retention and mild dilatation in the lower abdomen and pelvic region. Significance of this is uncertain. An early or partial small bowel obstruction of the distal jejunum cannot be excluded. There is no definable obstructing focus. The more distal ileum is nondilated. Proximal jejunum is nondilated. Appendix: The appendix is not identified. Recommend clinical correlation. Possible previous appendectomy. No inflammation in this region. Intraperitoneal space: No free fluid in the abdomen or pelvis. Vasculature: Unremarkable. No abdominal aortic aneurysm. Lymph nodes: Unremarkable. No enlarged lymph nodes. Urinary bladder: Unremarkable as visualized. Reproductive: Previous hysterectomy. No adnexal mass or cyst. Bones/joints: Degenerative thoracolumbar spine changes and dextroscoliosis. Soft tissues: Unremarkable. IMPRESSION: 1. Mild small bowel dilatation in the low mid abdomen and pelvis involving distal jejunal and proximal ileum loops. Significance uncertain. An early or partial small bowel obstruction cannot be excluded. A mild enteritis cannot be excluded. No ariel edema. 2. Heterogeneous liver parenchyma without distinct masslike features. Differential diagnosis would include a process such as geographic fat or hepatitis. Similar features are present on prior study from approximately 7-8 weeks ago. There is reported history of a malignant carcinoid tumor. An atypical pattern of metastases cannot be excluded. 3. Gallstones. No acute biliary tract findings. 4. No acute renal pathology. Benign 9 mm left renal cyst. No further imaging workup recommended based on MIPS criteria. 5. Aorto bi-iliac atherosclerotic calcium. 6. Previous hysterectomy. 7. No free fluid in the abdomen or pelvis. 8. 2 mm left lingular nonspecific rounded nodule. See series 5, image 3. Thank you for allowing us to participate in the care of your patient. Dictated and Authenticated by: Humza Snowden MD 01/13/2021 12:31 AM Central Time ([place] & [place]) - Re-Assessments/Exams Free Text/Narrative Re-Assessment/Exam: 01/13/21 CT abdomen/pelvis reveals small bowel dilation in the mid abdomen; early or partial bowel obstruction cannot be excluded. CBC unremarkable for acute processes; no evidence of infection or anemia. UA remarkable for leukocyte esterase and high WBC. Electrolytes on CMP WNL, however kidney function is slightly reduced with creatinine of 1.14 and liver functions are elevated. Discussed findings of examination, imaging, and lab work with patient and her as well as the need to transfer to higher level of care given her history. Patient verbalized improvement in pain following Dilaudid 1mg IVP. NG placed by ED staff; low-intermittent suction. Case discussed with [facility]; refused patient for transfer as they have no available beds. Case discussed with Dr. Munoz, ER physician at [facility] who kindly agreed to accept patient for transfer. Plan of care discussed with patient and her who verbalized understanding and agreement with the plan of care. Departure - Departure Time of Disposition: 01:52 Disposition: DC/Tfer to Acute Hospital 02 Condition: Good Clinical Impression: Small intestine obstruction, History of secondary liver cancer, History of m alignant carcinoid tumor, Elevated liver function tests - Discharge Information Referrals: PCP,None [Primary Care Provider] - Forms: Interfacility Transfer BARBARA
[2021-01-12 22:59] VITALS: BP 174/81; PULSE 95
[2021-01-12] MEDS ORDERED: Iopamidol 612 MG/ML 100 ML Bottle IVPUSH ONE (23:08)
[2021-01-12 23:28] LABS: PTT,PARTIAL THROMBOPLSTIN TIME 24.5 SEC (22.0-34.0)
--- NOTE | 2021-01-13 00:31 | CT ---
PROCEDURE INFORMATION: Exam: CT Abdomen And Pelvis With Contrast Exam date and time: 01/12/2021 11:35 PM Age: 80 years old Clinical indication: Abdominal pain; Localized; Right lower quadrant (rlq); Prior surgery; Surgery date: 6+ months; Surgery type: Hysterectomy; Additional info: Rlq pain; R/O appendicitis TECHNIQUE: Imaging protocol: Computed tomography of the abdomen and pelvis with contrast. Radiation optimization: All CT scans at this facility use at least one of these dose optimization techniques: automated exposure control; mA and/or kV adjustment per patient size (includes targeted exams where dose is matched to clinical indication); or iterative reconstruction. Contrast material: ISOVUE; Contrast volume: 75 ml; Contrast route: INTRAVENOUS (IV); COMPARISON: CT Abdomen w wo Cont 11/28/2020 9:34 AM FINDINGS: Lungs: Minor posterior lung base atelectasis. 2 mm granuloma in the lingular segment of the left upper lobe. Pleural spaces: No pleural effusion. Heart: Normal heart size. No pericardial effusion. Liver: Normal liver size. Heterogeneous appearance of the right lobe of the liver without distinct mass. Similar features are present 11/28/2020. Significance of this is uncertain. This could represent a process such as hepatitis. Areas of geographic fat cannot be excluded. A benign low-attenuation focus adjacent to the falciform ligament appears to represent an 8 mm cyst. Intrahepatic portal and hepatic veins are patent. Gallbladder and bile ducts: Gallstone. No biliary dilatation or gallbladder wall thickening. Pancreas: Mild pancreatic atrophy. No acute inflammation. Spleen: Normal. No splenomegaly. Adrenal glands: The adrenal glands are normal in size and contour bilaterally. Kidneys and ureters: The kidneys bilaterally are unremarkable. Normal enhancement. No hydronephrosis. No calculi. Stomach and bowel: Gastric morphology is unremarkable. No edema. No gastric outlet obstruction. Moderate size hiatal hernia. Nonspecific appearance. Small bowel loops show fluid retention and mild dilatation in the lower abdomen and pelvic region. Significance of this is uncertain. An early or partial small bowel obstruction of the distal jejunum cannot be excluded. There is no definable obstructing focus. The more distal ileum is nondilated. Proximal jejunum is nondilated. Appendix: The appendix is not identified. Recommend clinical correlation. Possible previous appendectomy. No inflammation in this region. Intraperitoneal space: No free fluid in the abdomen or pelvis. Vasculature: Unremarkable. No abdominal aortic aneurysm. Lymph nodes: Unremarkable. No enlarged lymph nodes. Urinary bladder: Unremarkable as visualized. Reproductive: Previous hysterectomy. No adnexal mass or cyst. Bones/joints: Degenerative thoracolumbar spine changes and dextroscoliosis. Soft tissues: Unremarkable. IMPRESSION: 1. Mild small bowel dilatation in the low mid abdomen and pelvis involving distal jejunal and proximal ileum loops. Significance uncertain. An early or partial small bowel obstruction cannot be excluded. A mild enteritis cannot be excluded. No ariel edema. 2. Heterogeneous liver parenchyma without distinct masslike features. Differential diagnosis would include a process such as geographic fat or hepatitis. Similar features are present on prior study from approximately 7-8 weeks ago. There is reported history of a malignant carcinoid tumor. An atypical pattern of metastases cannot be excluded. 3. Gallstones. No acute biliary tract findings. 4. No acute renal pathology. Benign 9 mm left renal cyst. No further imaging workup recommended based on MIPS criteria. 5. Aorto bi-iliac atherosclerotic calcium. 6. Previous hysterectomy. 7. No free fluid in the abdomen or pelvis. 8. 2 mm left lingular nonspecific rounded nodule. See series 5, image 3.
[2021-01-13] MEDS ORDERED: HYDROmorphone 1 MG/ML Syringe IVPUSH ONE (00:48)
--- NOTE | 2021-01-13 03:21 | CR ---
PROCEDURE INFORMATION: Exam: XR Abdomen Exam date and time: 01/13/2021 2:04 AM Age: 80 years old Clinical indication: Device placement; Gi device; Nasogastric tube; Additional info: Confirm ng/og tube placement TECHNIQUE: Imaging protocol: XR of the abdomen. Views: Frontal supine view of the abdomen. 1 View. COMPARISON: CT Abdomen w wo Cont 11/28/2020 9:34 AM FINDINGS: Tubes, catheters and devices: Tip of enteric catheter is in the midline upper abdomen likely in the region of the gastric antrum. Lungs: Included lung bases are clear Gastrointestinal tract: Normal. No bowel dilation. Organs: There are cholecystectomy sutures in the right upper quadrant. There is opacification of bilateral renal upper collecting systems likely related to residual contrast from previous contrast enhanced CT. Bones/joints: [id number] multilevel degenerative spondylosis. IMPRESSION: Tip of enteric catheter is in the stomach at the level of the gastric antrum.
== END 2021-01-13 02:23 ==
LOC: DL.ED 21:16
DX: K56.609 Unspecified intestinal obstruction, unspecified as to partial versus complete obstruction (principal); J45.909 Unspecified asthma, uncomplicated; R79.89 Other specified abnormal findings of blood chemistry; K21.9 Gastro-esophageal reflux disease without esophagitis; E03.9 Hypothyroidism, unspecified; Z85.05 Personal history of malignant neoplasm of liver; Z85.030 Personal history of malignant carcinoid tumor of large intestine; Z88.0 Allergy status to penicillin; Z88.8 Allergy status to other drugs, medicaments and biological substances; Z88.1 Allergy status to other antibiotic agents; Z88.2 Allergy status to sulfonamides; Z88.5 Allergy status to narcotic agent; Z79.899 Other long term (current) drug therapy; Z20.822 Contact with and (suspected) exposure to COVID-19
CPT/HCPCS: 36415; 43752; 74018; 74177; 80053; 81001; 83605; 83735; 85025; 85610; 85730; 86140; 87086; 87088; 87186; 96374; 99284; 99285-25; J1170; Q9967; U0002

== ENCOUNTER 2023-04-19 15:04 | Emergency (ER) | payer BC ==
[2023-04-19] MEDS ORDERED: Sodium Chloride 0.9% 10 ML Syringe FLUSH PRN (15:15)
[2023-04-19 15:36] VITALS: BP 117/96; PULSE 84
[2023-04-19 15:42] LABS: BASOPHILS PERCENT AUTO 0.5 % (0.0-1.0); EOSINOPHILS PERCENT AUTO 2.6 % (1.0-3.0); HEMATOCRIT 42.7 % (37.0-47.0); HEMOGLOBIN 14.6 g/dL (12.0-16.0); LYMPHOCYTES PERCENT AUTO 18.3 % (20.5-50.1); MEAN CORPUSCULAR HEMOGLOBIN 31.7 pg (27.0-34.0); MEAN CORPUSCULAR HGB CONC 34.2 g/dL (33.0-35.0); MEAN CORPUSCULAR VOLUME 92.6 fL (80-100); MONOCYTES PERCENT AUTO 9.3 % (2-8); NEUTROPHILS PERCENT AUTO 69.3 % (42.2-75.2); PLATELET COUNT,PLT 206 10^3/uL (150-450); RED BLOOD CELL COUNT 4.61 10^6/uL (4.2-5.4); WHITE BLOOD CELL COUNT,WBC 6.3 10^3/uL (5.0-10.0)
[2023-04-19] MEDS ORDERED: fentaNYL 100 MCG/2 ML SDV IVPUSH ONE (15:42)
[2023-04-19] MEDS ORDERED: Sodium Chloride 0.9% 1,000 ML IV ONE ×2 (15:50→17:46)
[2023-04-19] MEDS ORDERED: Simethicone 80 MG Tab.Chew PO ONE (15:50)
[2023-04-19 16:00] LABS: INR 0.9 (0.9-1.2); PROTHROMBIN TIME 9.6 SEC (9.0-12.0); PTT,PARTIAL THROMBOPLSTIN TIME 26.5 SEC (22.0-34.0)
[2023-04-19 16:07] LABS: LACTIC ACID 0.9 mmol/L (0.4-2.0)
[2023-04-19 16:09] LABS: APPEARANCE,URINE CLEAR (CLEAR); BILIRUBIN,URINE NEGATIVE (NEGATIVE); COLOR,URINE YELLOW (YELLOW); GLUCOSE,URINE NEGATIVE (NEGATIVE); KETONES,URINE NEGATIVE (NEGATIVE); LEUKOCYTE ESTERASE,URINE NEGATIVE (NEGATIVE); NITRITE,URINE NEGATIVE (NEGATIVE); OCCULT BLOOD,URINE NEGATIVE (NEGATIVE); PH,URINE 5.5 (5.0-9.0); PROTEIN,URINE NEGATIVE (NEGATIVE); UROBILINOGEN,URINE 0.2 mg/dL (0.2-1.0)
[2023-04-19 16:13] LABS: ALANINE AMINOTRANSFERASE,ALT 24 U/L (14-59); ALBUMIN 3.6 g/dL (3.4-5.0); ALKALINE PHOSPHATASE 113 U/L (46-116); AMYLASE 50 U/L (25-115); ANION GAP 11.8 mEq/L (7-13); ASPARTATE AMNIOTRANSFERASE,AST 20 U/L (15-37); BILIRUBIN TOTAL 0.4 mg/dL (0.2-1.0); BLOOD UREA NITROGEN,BUN 16 mg/dL (7-18); BUN/CREATININE RATIO 15.2 (No establ ref range); CALCIUM 9.2 mg/dL (8.5-10.1); CARBON DIOXIDE,CO2 29 mmol/L (21-32); CHLORIDE,CL 106 mmol/L (98-107); CREATININE 1.05 mg/dL (0.55-1.02); EST CRCL DRUG DOSING (CG) 34.44 mL/min; GLUCOSE RANDOM 111 mg/dL (70-99); LIPASE 52 U/L (73-393); MAGNESIUM 1.9 mg/dL (1.8-2.4); POTASSIUM,K 3.8 mmol/L (3.5-5.1); PROTEIN TOTAL,TP 7.3 g/dL (6.4-8.2); SODIUM,NA 143 mmol/L (136-145)
[2023-04-19 16:16] LABS: C-REACTIVE PROTEIN < 0.2 mg/dL (0.0-0.9); ESTIMATED GFR 52 mL/min (>=60)
[2023-04-19] MEDS ORDERED: Iopamidol 612 MG/ML 100 ML Bottle IVPUSH ONE (16:18)
[2023-04-19] MEDS ORDERED: HYDROmorphone 1 MG/ML Syringe IVPUSH ONE ×2 (17:46→19:12)
[2023-04-19] MEDS ORDERED: Ondansetron 4 MG/2 ML SDV IVPUSH ONE (19:30)
== END 2023-04-19 20:11 ==
LOC: DL.ED 15:04
DX: K56.699 Other intestinal obstruction unspecified as to partial versus complete obstruction (principal); K21.9 Gastro-esophageal reflux disease without esophagitis; E78.00 Pure hypercholesterolemia, unspecified; J45.909 Unspecified asthma, uncomplicated; Z88.1 Allergy status to other antibiotic agents; Z88.2 Allergy status to sulfonamides; Z88.5 Allergy status to narcotic agent; Z88.8 Allergy status to other drugs, medicaments and biological substances; Z79.899 Other long term (current) drug therapy; Z88.0 Allergy status to penicillin
CPT/HCPCS: 36415; 71045; 74018; 74177; 80053; 81003; 82150; 83605; 83690; 83735; 84145; 85025; 85610; 85730; 86140; 87040; 96361; 96374; 96375; 96376; 99284; 99285; A9270; C1758; J1170; J2405; J3010; J7030; Q9967; J3490

== ENCOUNTER 2023-11-11 09:03 | Emergency (ER) | payer BC ==
[2023-11-11] MEDS ORDERED: Sodium Chloride 0.9% 10 ML Syringe FLUSH PRN (09:26)
[2023-11-11] MEDS ORDERED: Ondansetron 4 MG/2 ML SDV IV ONE (09:28)
[2023-11-11] MEDS ORDERED: HYDROmorphone 1 MG/ML Syringe IVPUSH ONE (09:28)
[2023-11-11] MEDS ORDERED: Iopamidol 612 MG/ML 100 ML Bottle IVPUSH ONE (09:29)
[2023-11-11] MEDS ORDERED: Sodium Chloride 0.9% 1,000 ML IV ONE (09:29)
[2023-11-11 09:33] VITALS: BP 106/71; PULSE 100
[2023-11-11 09:39] LABS: BASOPHILS PERCENT AUTO 0.1 % (0.0-1.0); HEMATOCRIT 42.2 % (37.0-47.0); HEMOGLOBIN 13.9 g/dL (12.0-16.0); LYMPHOCYTES PERCENT AUTO 3.5 % (20.5-50.1); MEAN CORPUSCULAR HEMOGLOBIN 30.5 pg (27.0-34.0); MEAN CORPUSCULAR HGB CONC 32.9 g/dL (33.0-35.0); MEAN CORPUSCULAR VOLUME 92.5 fL (80-100); MONOCYTES PERCENT AUTO 10.8 % (2-8); NEUTROPHILS PERCENT AUTO 85.6 % (42.2-75.2); PLATELET COUNT,PLT 177 10^3/uL (150-450); RED BLOOD CELL COUNT 4.56 10^6/uL (4.2-5.4); WHITE BLOOD CELL COUNT,WBC 17.3 10^3/uL (5.0-10.0)
[2023-11-11 09:59] LABS: ANION GAP 10.9 mEq/L (7-13); BUN/CREATININE RATIO 14.7 (No establ ref range); CREATININE 1.09 mg/dL (0.55-1.02); EST CRCL DRUG DOSING (CG) 35.32 mL/min; POTASSIUM,K 3.9 mmol/L (3.5-5.1); PROTEIN TOTAL,TP 6.7 g/dL (6.4-8.2)
[2023-11-11 10:01] LABS: A/G RATIO 0.81
[2023-11-11 10:13] LABS: INR 1.1 (0.9-1.2); PROTHROMBIN TIME 10.9 SEC (9.0-12.0); PTT,PARTIAL THROMBOPLSTIN TIME 27.7 SEC (22.0-34.0)
[2023-11-11 10:36] LABS: APPEARANCE,URINE SLIGHTLY CLOUDY (CLEAR); BILIRUBIN,URINE NEGATIVE (NEGATIVE); COLOR,URINE YELLOW (YELLOW); GLUCOSE,URINE NEGATIVE (NEGATIVE); KETONES,URINE NEGATIVE (NEGATIVE); LEUKOCYTE ESTERASE,URINE SMALL (NEGATIVE); NITRITE,URINE POSITIVE (NEGATIVE); OCCULT BLOOD,URINE NEGATIVE (NEGATIVE); PROTEIN,URINE NEGATIVE (NEGATIVE); UROBILINOGEN,URINE 0.2 mg/dL (0.2-1.0)
[2023-11-11 10:47] LABS: AMORPHOUS SEDIMENT,URINE RARE /HPF (NOT SEEN); BACTERIA,URINE MANY /HPF (0-FEW/HPF); EPITHELIAL CELLS,URINE FEW /HPF (NOT SEEN); MUCUS,URINE NOT SEEN /LPF (NOT SEEN); RBC,URINE NOT SEEN /HPF (0-5)
[2023-11-11] MEDS ORDERED: Benzocaine 20% Topical Spray UD MUCMEM ONE (11:04)
[2023-11-11] MEDS ORDERED: Ampicillin/Sulbactam Na 3 GM in Sodium Chloride 0.9% 100 ML IV ONE (12:03)
[2023-11-11] MEDS ORDERED: HYDROmorphone 1 MG/ML Syringe ONE (14:05)
== END 2023-11-11 14:21 ==
LOC: DL.ED 09:03
DX: K56.609 Unspecified intestinal obstruction, unspecified as to partial versus complete obstruction (principal); N39.0 Urinary tract infection, site not specified; E03.9 Hypothyroidism, unspecified; Z79.899 Other long term (current) drug therapy; Z88.1 Allergy status to other antibiotic agents; Z88.2 Allergy status to sulfonamides; Z88.5 Allergy status to narcotic agent; Z88.0 Allergy status to penicillin; Z88.8 Allergy status to other drugs, medicaments and biological substances
CPT/HCPCS: 36415; 43752; 71045; 71260; 74018; 74177; 80053; 81001; 82150; 83605; 83690; 84145; 85025; 85610; 85730; 86140; 87086; 87088; 87186; 96361; 96365; 96375; 99284; 99285; A9270; J0295; J1170; J2405; J3490; J7030; Q9967

== ENCOUNTER 2024-08-04 13:06 | Emergency (ER) | payer MEDICARE, BC ==
[2024-08-04 13:30] VITALS: BP 141/78; PULSE 53
[2024-08-04 13:50] LABS: BASOPHILS PERCENT AUTO 0.3 % (0.0-1.0); EOSINOPHILS PERCENT AUTO 3.2 % (1.0-3.0); HEMATOCRIT 40.8 % (37.0-47.0); HEMOGLOBIN 13.5 g/dL (12.0-16.0); MEAN CORPUSCULAR HEMOGLOBIN 31.2 pg (27.0-34.0); MEAN CORPUSCULAR HGB CONC 33.1 g/dL (33.0-35.0); MEAN CORPUSCULAR VOLUME 94.2 fL (80-100); NEUTROPHILS PERCENT AUTO 74.5 % (42.2-75.2); PLATELET COUNT,PLT 198 10^3/uL (150-450); RED BLOOD CELL COUNT 4.33 10^6/uL (4.2-5.4); WHITE BLOOD CELL COUNT,WBC 6.6 10^3/uL (5.0-10.0)
[2024-08-04 14:15] LABS: ALBUMIN 3.1 g/dL (3.4-5.0); ANION GAP 11.6 mEq/L (7-13); BILIRUBIN TOTAL 0.6 mg/dL (0.2-1.0); BUN/CREATININE RATIO 11.9 (No establ ref range); CALCIUM 9.2 mg/dL (8.5-10.1); CREATININE 1.18 mg/dL (0.55-1.02); EST CRCL DRUG DOSING (CG) 29.55 mL/min; POTASSIUM,K 3.6 mmol/L (3.5-5.1); PROTEIN TOTAL,TP 6.8 g/dL (6.4-8.2)
[2024-08-04 14:16] LABS: A/G RATIO 0.84
== END 2024-08-04 15:11 | disposition home or self-care (01) ==
LOC: DL.ED 13:06
DX: M94.0 Chondrocostal junction syndrome [Tietze] (principal); J45.909 Unspecified asthma, uncomplicated; K21.9 Gastro-esophageal reflux disease without esophagitis; E03.9 Hypothyroidism, unspecified; Z90.710 Acquired absence of both cervix and uterus; Z79.899 Other long term (current) drug therapy; Z88.1 Allergy status to other antibiotic agents; Z88.5 Allergy status to narcotic agent; Z88.2 Allergy status to sulfonamides
CPT/HCPCS: 36415; 71046; 80053; 84484; 85025; 93005; 99285

== ENCOUNTER 2024-09-30 10:45 | Emergency (ER) | payer MEDICARE, BC ==
[2024-09-30] MEDS: Sodium Chloride 0.9% 10 ML Syringe FLUSH PRN (11:16)
[2024-09-30 11:36] LABS: BASOPHILS PERCENT AUTO 0.3 % (0.0-1.0); EOSINOPHILS PERCENT AUTO 1.8 % (1.0-3.0); HEMATOCRIT 41.4 % (37.0-47.0); HEMOGLOBIN 14.1 g/dL (12.0-16.0); MEAN CORPUSCULAR HEMOGLOBIN 31.1 pg (27.0-34.0); MEAN CORPUSCULAR HGB CONC 34.1 g/dL (33.0-35.0); MEAN CORPUSCULAR VOLUME 91.4 fL (80-100); MONOCYTES PERCENT AUTO 9.5 % (2-8); NEUTROPHILS PERCENT AUTO 77.4 % (42.2-75.2); PLATELET COUNT,PLT 179 10^3/uL (150-450); RED BLOOD CELL COUNT 4.53 10^6/uL (4.2-5.4); WHITE BLOOD CELL COUNT,WBC 6.6 10^3/uL (5.0-10.0)
[2024-09-30 11:39] LABS: APPEARANCE,URINE CLOUDY (CLEAR); BILIRUBIN,URINE NEGATIVE (NEGATIVE); COLOR,URINE YELLOW (YELLOW); GLUCOSE,URINE NEGATIVE (NEGATIVE); KETONES,URINE NEGATIVE (NEGATIVE); LEUKOCYTE ESTERASE,URINE MODERATE (NEGATIVE); NITRITE,URINE POSITIVE (NEGATIVE); OCCULT BLOOD,URINE NEGATIVE (NEGATIVE); PH,URINE 5.5 (5.0-9.0); PROTEIN,URINE TRACE (NEGATIVE); UROBILINOGEN,URINE 0.2 mg/dL (0.2-1.0)
[2024-09-30 11:50] LABS: BACTERIA,URINE MANY /HPF (0-FEW/HPF); EPITHELIAL CELLS,URINE MODERATE /HPF (NOT SEEN); MUCUS,URINE FEW /LPF (NOT SEEN); RBC,URINE 0-5 /HPF (0-5)
[2024-09-30 11:51] LABS: WBC,URINE 30-40 /HPF (0-5/HPF)
[2024-09-30 12:00] LABS: LACTIC ACID 1.6 mmol/L (0.4-2.0)
[2024-09-30 12:07] LABS: ANION GAP 12.4 mEq/L (7-13); BILIRUBIN TOTAL 0.5 mg/dL (0.2-1.0); C-REACTIVE PROTEIN 1.84 ng/dL (<=0.50); CALCIUM 8.7 mg/dL (8.5-10.1); CREATININE 1.25 mg/dL (0.55-1.02); EST CRCL DRUG DOSING (CG) 25.55 mL/min; POTASSIUM,K 3.4 mmol/L (3.5-5.1); PROTEIN TOTAL,TP 6.5 g/dL (6.4-8.2)
[2024-09-30 12:11] LABS: A/G RATIO 0.86
[2024-09-30] MEDS: cefTRIAXone 2 GM Vial IVPUSH ONE (12:11)
[2024-09-30 12:25] VITALS: BP 115/71; PULSE 94
== END 2024-09-30 12:50 | disposition home or self-care (01) ==
LOC: DL.ED 10:45
DX: N39.0 Urinary tract infection, site not specified (principal); J45.909 Unspecified asthma, uncomplicated; E78.00 Pure hypercholesterolemia, unspecified; K21.9 Gastro-esophageal reflux disease without esophagitis; E03.9 Hypothyroidism, unspecified; Z90.710 Acquired absence of both cervix and uterus; Z88.0 Allergy status to penicillin; Z88.8 Allergy status to other drugs, medicaments and biological substances; Z88.5 Allergy status to narcotic agent; Z88.1 Allergy status to other antibiotic agents; Z79.890 Hormone replacement therapy; Z79.899 Other long term (current) drug therapy
CPT/HCPCS: 36415; 80053; 81001; 83605; 83615; 83690; 83735; 85025; 86140; 87086; 87088; 87186; 87428-QW; 96374; 99284-25; J0696

== ENCOUNTER 2024-10-27 10:30 | Emergency (ER) | payer MEDICARE, BC ==
[2024-10-27 11:30] LABS: BASOPHILS PERCENT AUTO 0.3 % (0.0-1.0); EOSINOPHILS PERCENT AUTO 1.6 % (1.0-3.0); HEMATOCRIT 42.9 % (37.0-47.0); HEMOGLOBIN 14.3 g/dL (12.0-16.0); LYMPHOCYTES PERCENT AUTO 7.7 % (20.5-50.1); MEAN CORPUSCULAR HEMOGLOBIN 31.1 pg (27.0-34.0); MEAN CORPUSCULAR HGB CONC 33.3 g/dL (33.0-35.0); MEAN CORPUSCULAR VOLUME 93.3 fL (80-100); MONOCYTES PERCENT AUTO 9.1 % (2-8); NEUTROPHILS PERCENT AUTO 81.3 % (42.2-75.2); PLATELET COUNT,PLT 191 10^3/uL (150-450); WHITE BLOOD CELL COUNT,WBC 9.5 10^3/uL (5.0-10.0)
[2024-10-27] MEDS: Iopamidol 612 MG/ML 100 ML Bottle IVPUSH ONE (11:36)
[2024-10-27 11:45] LABS: APPEARANCE,URINE SLIGHTLY CLOUDY (CLEAR); BILIRUBIN,URINE NEGATIVE (NEGATIVE); COLOR,URINE YELLOW (YELLOW); GLUCOSE,URINE NEGATIVE (NEGATIVE); KETONES,URINE NEGATIVE (NEGATIVE); LEUKOCYTE ESTERASE,URINE SMALL (NEGATIVE); NITRITE,URINE POSITIVE (NEGATIVE); OCCULT BLOOD,URINE NEGATIVE (NEGATIVE); PH,URINE 6.5 (5.0-9.0); PROTEIN,URINE NEGATIVE (NEGATIVE); UROBILINOGEN,URINE 0.2 mg/dL (0.2-1.0)
[2024-10-27 11:46] LABS: PROTHROMBIN TIME 10.4 SEC (9.0-12.0)
[2024-10-27 11:50] LABS: ALBUMIN 3.3 g/dL (3.4-5.0); ANION GAP 11.6 mEq/L (7-13); BILIRUBIN DIRECT 0.2 mg/dL (0.0-0.2); BILIRUBIN INDIRECT 0.6; BILIRUBIN TOTAL 0.8 mg/dL (0.2-1.0); CALCIUM 9.3 mg/dL (8.5-10.1); CREATININE 1.13 mg/dL (0.55-1.02); EST CRCL DRUG DOSING (CG) 29.56 mL/min; POTASSIUM,K 3.6 mmol/L (3.5-5.1); PROTEIN TOTAL,TP 7.2 g/dL (6.4-8.2)
[2024-10-27 11:51] LABS: A/G RATIO 0.85
[2024-10-27 12:03] LABS: WBC,URINE 30-40 /HPF (0-5/HPF)
[2024-10-27 12:04] LABS: BACTERIA,URINE MANY /HPF (0-FEW/HPF); EPITHELIAL CELLS,URINE MODERATE /HPF (NOT SEEN); MUCUS,URINE FEW /LPF (NOT SEEN); RBC,URINE 0-5 /HPF (0-5)
[2024-10-27 12:37] VITALS: BP 135/77; PULSE 79
[2024-10-27] MEDS: Ondansetron 4 MG/2 ML SDV IVPUSH ONE (14:09)
[2024-10-27] MEDS: Cephalexin 500 MG Cap PO ONE (14:09)
[2024-10-27] MEDS: HYDROmorphone 2 MG/ML Syringe IVPUSH ONE (14:10)
[2024-10-27] MEDS: HYDROmorphone 0.5 MG/0.5 ML Syringe ONE (14:19)
[2024-10-27] MEDS: Take Home: Cephalexin 500 MG Cap, 6 Cap Pack PO ONE (14:42)
[2024-10-27] MEDS: Take Home: traMADol 50 MG, 4 Tab Pack PO ONE (14:43)
== END 2024-10-27 15:07 | disposition home or self-care (01) ==
LOC: DL.ED 10:30
DX: K76.9 Liver disease, unspecified (principal); R10.31 Right lower quadrant pain; C79.9 Secondary malignant neoplasm of unspecified site; C78.7 Secondary malignant neoplasm of liver and intrahepatic bile duct; C80.1 Malignant (primary) neoplasm, unspecified; Z87.891 Personal history of nicotine dependence; Z90.710 Acquired absence of both cervix and uterus; J45.909 Unspecified asthma, uncomplicated; K21.9 Gastro-esophageal reflux disease without esophagitis; I10 Essential (primary) hypertension; E78.00 Pure hypercholesterolemia, unspecified; E03.9 Hypothyroidism, unspecified; Z79.899 Other long term (current) drug therapy; Z88.2 Allergy status to sulfonamides; Z88.5 Allergy status to narcotic agent; Z88.8 Allergy status to other drugs, medicaments and biological substances; Z88.0 Allergy status to penicillin
CPT/HCPCS: 36415; 74177; 80048; 80076; 81001; 82150; 83690; 85025; 85610; 87086; 87088; 87186; 96374; 96375; 99284; A9270; J1171; J2405; Q9967

== ENCOUNTER 2024-12-20 02:10 | Inpatient (IN) | payer MEDICARE, BC ==
[2024-12-20] MEDS: Iopamidol 612 MG/ML 100 ML Bottle IVPUSH ONE (02:30)
[2024-12-20 02:42] LABS: BASOPHILS PERCENT AUTO 0.5 % (0.0-1.0); EOSINOPHILS PERCENT AUTO 4.2 % (1.0-3.0); HEMATOCRIT 38.5 % (37.0-47.0); HEMOGLOBIN 12.7 g/dL (12.0-16.0); LYMPHOCYTES PERCENT AUTO 19.9 % (20.5-50.1); MEAN CORPUSCULAR HEMOGLOBIN 30.8 pg (27.0-34.0); MEAN CORPUSCULAR VOLUME 93.2 fL (80-100); MONOCYTES PERCENT AUTO 12.1 % (2-8); NEUTROPHILS PERCENT AUTO 63.3 % (42.2-75.2); PLATELET COUNT,PLT 181 10^3/uL (150-450); RED BLOOD CELL COUNT 4.13 10^6/uL (4.2-5.4); WHITE BLOOD CELL COUNT,WBC 5.7 10^3/uL (5.0-10.0)
[2024-12-20] MEDS: Sodium Chloride 0.9% 1,000 ML IV ONE ×2 (02:52→04:31)
[2024-12-20 03:05] LABS: ALANINE AMINOTRANSFERASE,ALT 19 U/L (14-59); ALKALINE PHOSPHATASE 128 U/L (46-116); ANION GAP 9.4 mEq/L (7-13); ASPARTATE AMNIOTRANSFERASE,AST 20 U/L (15-37); BILIRUBIN TOTAL 0.5 mg/dL (0.2-1.0); BLOOD UREA NITROGEN,BUN 21 mg/dL (7-18); BUN/CREATININE RATIO 15.1 (No establ ref range); CALCIUM 9.3 mg/dL (8.5-10.1); CARBON DIOXIDE,CO2 31 mmol/L (21-32); CHLORIDE,CL 105 mmol/L (98-107); CREATININE 1.39 mg/dL (0.55-1.02); EST CRCL DRUG DOSING (CG) 25.09 mL/min; GLUCOSE RANDOM 116 mg/dL (70-99); LIPASE 30 U/L (16-77); MAGNESIUM 1.9 mg/dL (1.8-2.4); POTASSIUM,K 3.4 mmol/L (3.5-5.1); PROTEIN TOTAL,TP 6.6 g/dL (6.4-8.2); SODIUM,NA 142 mmol/L (136-145)
[2024-12-20 03:09] LABS: A/G RATIO 0.83; C-REACTIVE PROTEIN < 0.50 ng/dL (<=0.50); ESTIMATED GFR 37 mL/min (>=60); LACTIC ACID 0.9 mmol/L (0.4-2.0)
[2024-12-20] MEDS: Potassium Chloride 10 MEQ Tab.ER PO ONE (03:26)
[2024-12-20 03:36] LABS: APPEARANCE,URINE CLEAR (CLEAR); BILIRUBIN,URINE NEGATIVE (NEGATIVE); COLOR,URINE YELLOW (YELLOW); GLUCOSE,URINE NEGATIVE (NEGATIVE); KETONES,URINE NEGATIVE (NEGATIVE); LEUKOCYTE ESTERASE,URINE SMALL (NEGATIVE); NITRITE,URINE NEGATIVE (NEGATIVE); OCCULT BLOOD,URINE NEGATIVE (NEGATIVE); PROTEIN,URINE NEGATIVE (NEGATIVE); UROBILINOGEN,URINE 0.2 mg/dL (0.2-1.0)
[2024-12-20 03:59] LABS: BACTERIA,URINE FEW /HPF (0-FEW/HPF); EPITHELIAL CELLS,URINE FEW /HPF (NOT SEEN); MUCUS,URINE FEW /LPF (NOT SEEN); RBC,URINE 0-5 /HPF (0-5); WBC,URINE 40-50 /HPF (0-5/HPF)
[2024-12-20] MEDS: cefTRIAXone 1 GM Vial IVPUSH ONE (04:12)
[2024-12-20] MEDS: Acetaminophen 325 MG Tab PO ONE (04:41)
[2024-12-20] MEDS: Ondansetron 4 MG/2 ML SDV IVPUSH ONE (06:13)
[2024-12-20] MEDS: Morphine 2 MG/ML SYRINGE IVPUSH ONE (06:16)
[2024-12-20] MEDS: Sodium Chloride 0.9% 1,000 ML IV SCH (08:12)
[2024-12-20] MEDS ORDERED: Ondansetron 4 MG/2 ML SDV IVPUSH PRN (12:19)
[2024-12-20] MEDS ORDERED: Morphine 2 MG/ML SYRINGE IVPUSH PRN (12:20)
[2024-12-20] MEDS ORDERED: Clotrimazole 1% Crm 30 GM Tube TOP PRN (12:22)
[2024-12-20 12:52] LABS: T4 FREE 1.55 ng/dL (0.76-1.46); TSH ULTRASENSITIVE 0.16 uIU/mL (0.36-3.74)
[2024-12-20] MEDS: Dextrose 5%-0.45% NaCl 1,000 ML IV SCH (12:53)
[2024-12-20] MEDS: Potassium Chloride 20 MEQ in Premix Bag 1 BAG IV ONE (12:53)
[2024-12-20] MEDS: Heparin Sodium 5,000 Units/ML Vial SUBCUT SCH (14:20)
[2024-12-20] MEDS: Formoterol/Mometasone 200-5 MCG 8.8 GM Inhaler INH SCH (17:48)
[2024-12-20] MEDS: Lactulose Soln 10 GM/15 ML 30 ML UD Cup PO ONE (18:30)
[2024-12-21 06:30] LABS: BASOPHILS PERCENT AUTO 0.7 % (0.0-1.0); EOSINOPHILS PERCENT AUTO 5.6 % (1.0-3.0); HEMOGLOBIN 12.3 g/dL (12.0-16.0); LYMPHOCYTES PERCENT AUTO 20.3 % (20.5-50.1); MEAN CORPUSCULAR HEMOGLOBIN 30.5 pg (27.0-34.0); MEAN CORPUSCULAR HGB CONC 32.4 g/dL (33.0-35.0); MEAN CORPUSCULAR VOLUME 94.3 fL (80-100); MONOCYTES PERCENT AUTO 12.8 % (2-8); NEUTROPHILS PERCENT AUTO 60.6 % (42.2-75.2); PLATELET COUNT,PLT 178 10^3/uL (150-450); RED BLOOD CELL COUNT 4.03 10^6/uL (4.2-5.4); WHITE BLOOD CELL COUNT,WBC 4.1 10^3/uL (5.0-10.0)
[2024-12-21 06:52] LABS: ALBUMIN 2.7 g/dL (3.4-5.0); ANION GAP 11.9 mEq/L (7-13); BILIRUBIN DIRECT 0.2 mg/dL (0.0-0.2); BILIRUBIN INDIRECT 0.3; BILIRUBIN TOTAL 0.5 mg/dL (0.2-1.0); CALCIUM 9.3 mg/dL (8.5-10.1); CREATININE 1.07 mg/dL (0.55-1.02); EST CRCL DRUG DOSING (CG) 32.59 mL/min; MAGNESIUM 1.8 mg/dL (1.8-2.4); POTASSIUM,K 3.9 mmol/L (3.5-5.1); PROTEIN TOTAL,TP 6.1 g/dL (6.4-8.2)
[2024-12-21 06:59] LABS: A/G RATIO 0.79
[2024-12-21 07:32] VITALS: BP 136/70; PULSE 79
[2024-12-21] MEDS: cefTRIAXone 2 GM Vial IVPUSH SCH (10:03)
[2024-12-21] MEDS: Fluconazole 100 MG Tab PO ONE (10:04)
== END 2024-12-21 10:40 | disposition home or self-care (01) | DRG 389 ==
LOC: DL.ED 02:10 → DL.MS 11:26
PROVIDERS: ADMIT Internal Medicine; ATTEND Internal Medicine
DX: K56.600 Partial intestinal obstruction, unspecified as to cause (principal); K56.7 Ileus, unspecified; C18.9 Malignant neoplasm of colon, unspecified; C78.7 Secondary malignant neoplasm of liver and intrahepatic bile duct; N17.9 Acute kidney failure, unspecified; N39.0 Urinary tract infection, site not specified; R59.0 Localized enlarged lymph nodes; I10 Essential (primary) hypertension; E03.9 Hypothyroidism, unspecified; Z79.51 Long term (current) use of inhaled steroids; Z79.890 Hormone replacement therapy; K21.9 Gastro-esophageal reflux disease without esophagitis; E66.9 Obesity, unspecified; Z88.5 Allergy status to narcotic agent; E78.00 Pure hypercholesterolemia, unspecified; E87.6 Hypokalemia; E86.0 Dehydration; N18.9 Chronic kidney disease, unspecified; J45.909 Unspecified asthma, uncomplicated; Z79.1 Long term (current) use of non-steroidal anti-inflammatories (NSAID); Z88.1 Allergy status to other antibiotic agents; Z88.8 Allergy status to other drugs, medicaments and biological substances; Z79.899 Other long term (current) drug therapy; Z79.02 Long term (current) use of antithrombotics/antiplatelets; Z90.710 Acquired absence of both cervix and uterus; Z98.890 Other specified postprocedural states; Z87.891 Personal history of nicotine dependence; Z85.038 Personal history of other malignant neoplasm of large intestine
CPT/HCPCS: 36415; 74177; 80048; 80053; 80076; 81001; 82977; 83605; 83690; 83735; 84439; 84443; 85025; 86140; 87086; 87088; 87186; 94664; 96361; 96374; 96375; 99223; 99239; 99285; 99285-25; A9270-GY; J0696; J1644; J2270; J2405; J3480; J7030; Q9967

== ENCOUNTER 2025-01-23 00:40 | Inpatient (IN) | payer MEDICARE, BC ==
[2025-01-23] MEDS ORDERED: Sodium Chloride 0.9% 10 ML Syringe FLUSH PRN (00:56)
[2025-01-23] MEDS: fentaNYL 100 MCG/2 ML SDV IVPUSH ONE (01:09)
[2025-01-23] MEDS: Lactated Ringers 1,000 ML IV ONE (01:11)
[2025-01-23 01:18] LABS: BASOPHILS PERCENT AUTO 0.1 % (0.0-1.0); EOSINOPHILS PERCENT AUTO 2.8 % (1.0-3.0); HEMATOCRIT 41.5 % (37.0-47.0); HEMOGLOBIN 14.2 g/dL (12.0-16.0); LYMPHOCYTES PERCENT AUTO 15.2 % (20.5-50.1); MEAN CORPUSCULAR HEMOGLOBIN 31.1 pg (27.0-34.0); MEAN CORPUSCULAR HGB CONC 34.2 g/dL (33.0-35.0); MONOCYTES PERCENT AUTO 8.8 % (2-8); NEUTROPHILS PERCENT AUTO 73.1 % (42.2-75.2); PLATELET COUNT,PLT 181 10^3/uL (150-450); RED BLOOD CELL COUNT 4.56 10^6/uL (4.2-5.4); WHITE BLOOD CELL COUNT,WBC 8.2 10^3/uL (5.0-10.0)
[2025-01-23 01:38] LABS: A/G RATIO 0.94; ALANINE AMINOTRANSFERASE,ALT 22 U/L (14-59); ALBUMIN 3.3 g/dL (3.4-5.0); ALKALINE PHOSPHATASE 132 U/L (46-116); ANION GAP 10.5 mEq/L (7-13); ASPARTATE AMNIOTRANSFERASE,AST 20 U/L (15-37); BILIRUBIN TOTAL 0.6 mg/dL (0.2-1.0); BLOOD UREA NITROGEN,BUN 20 mg/dL (7-18); BUN/CREATININE RATIO 13.6 (No establ ref range); C-REACTIVE PROTEIN < 0.50 ng/dL (<=0.50); CALCIUM 9.4 mg/dL (8.5-10.1); CARBON DIOXIDE,CO2 30 mmol/L (21-32); CHLORIDE,CL 104 mmol/L (98-107); CREATININE 1.47 mg/dL (0.55-1.02); ESTIMATED GFR 35 mL/min (>=60); GLUCOSE RANDOM 104 mg/dL (70-99); MAGNESIUM 1.8 mg/dL (1.8-2.4); POTASSIUM,K 3.5 mmol/L (3.5-5.1); PROTEIN TOTAL,TP 6.8 g/dL (6.4-8.2); SODIUM,NA 141 mmol/L (136-145)
[2025-01-23 01:43] LABS: LACTIC ACID 1.2 mmol/L (0.4-2.0)
[2025-01-23] MEDS: fentaNYL 100 MCG/2 ML SDV IVPUSH PRN (02:17)
[2025-01-23 02:29] LABS: APPEARANCE,URINE SLIGHTLY CLOUDY (CLEAR); BILIRUBIN,URINE NEGATIVE (NEGATIVE); COLOR,URINE YELLOW (YELLOW); GLUCOSE,URINE NEGATIVE (NEGATIVE); KETONES,URINE NEGATIVE (NEGATIVE); LEUKOCYTE ESTERASE,URINE SMALL (NEGATIVE); NITRITE,URINE NEGATIVE (NEGATIVE); OCCULT BLOOD,URINE NEGATIVE (NEGATIVE); PROTEIN,URINE NEGATIVE (NEGATIVE); UROBILINOGEN,URINE 0.2 mg/dL (0.2-1.0)
[2025-01-23 02:41] LABS: BACTERIA,URINE MANY /HPF (0-FEW/HPF); EPITHELIAL CELLS,URINE RARE /HPF (NOT SEEN); RBC,URINE NOT SEEN /HPF (0-5)
[2025-01-23] MEDS: Iopamidol 612 MG/ML 100 ML Bottle IVPUSH ONE (03:09)
[2025-01-23] MEDS: cefTRIAXone 1 GM Vial IVPUSH ONE (04:49)
[2025-01-23] MEDS: Benzocaine 20% Topical Spray UD MUCMEM ONE (04:50)
[2025-01-23] MEDS ORDERED: hydrALAZINE 20 MG/ML SDV IVPUSH PRN (09:25)
[2025-01-23] MEDS ORDERED: Metoprolol Tartrate 5 MG/5 ML SDV IVPUSH PRN (09:25)
[2025-01-23] MEDS ORDERED: Melatonin 3 MG Tab PO PRN (09:26)
[2025-01-23] MEDS ORDERED: Acetaminophen 325 MG Tab PO PRN (09:26)
[2025-01-23] MEDS ORDERED: Acetaminophen/oxyCODONE 325-5 MG Tab PO PRN (09:26)
[2025-01-23] MEDS ORDERED: Albuterol/Ipratropium 3.0-0.5 MG/3 ML Neb Soln NEB PRN (09:26)
[2025-01-23] MEDS ORDERED: Naloxone 2 MG/2 ML Syringe IVPUSH PRN (09:40)
[2025-01-23] MEDS ORDERED: fentaNYL 100 MCG/2 ML SDV IVPUSH PRN (09:40)
[2025-01-23] MEDS: Scopalamine 1mg/3day Transdermal Patch TOP ONE (10:28)
[2025-01-23] MEDS: Metoclopramide 10 MG/2 ML SDV IV SCH (10:28)
[2025-01-23] MEDS: Dextrose 5%-0.9% NaCl 1,000 ML IV SCH (10:28)
[2025-01-23] MEDS: Check SCOPOLAMINE Patch TRDERM SCH (21:06)
[2025-01-24 06:36] LABS: BASOPHILS PERCENT AUTO 0.2 % (0.0-1.0); EOSINOPHILS PERCENT AUTO 3.8 % (1.0-3.0); HEMATOCRIT 38.4 % (37.0-47.0); LYMPHOCYTES PERCENT AUTO 16.8 % (20.5-50.1); MEAN CORPUSCULAR HEMOGLOBIN 31.3 pg (27.0-34.0); MEAN CORPUSCULAR HGB CONC 33.9 g/dL (33.0-35.0); MEAN CORPUSCULAR VOLUME 92.5 fL (80-100); MONOCYTES PERCENT AUTO 11.2 % (2-8); PLATELET COUNT,PLT 171 10^3/uL (150-450); RED BLOOD CELL COUNT 4.15 10^6/uL (4.2-5.4); WHITE BLOOD CELL COUNT,WBC 5.5 10^3/uL (5.0-10.0)
[2025-01-24 07:02] LABS: A/G RATIO 0.82; ALBUMIN 2.7 g/dL (3.4-5.0); ANION GAP 10.4 mEq/L (7-13); BILIRUBIN TOTAL 0.7 mg/dL (0.2-1.0); BUN/CREATININE RATIO 10.8 (No establ ref range); C-REACTIVE PROTEIN 0.67 ng/dL (<=0.50); CREATININE 1.02 mg/dL (0.55-1.02); EST CRCL DRUG DOSING (CG) 34.19 mL/min; MAGNESIUM 1.7 mg/dL (1.8-2.4); POTASSIUM,K 3.4 mmol/L (3.5-5.1)
[2025-01-24] MEDS: cefTRIAXone 1 GM Vial IVPUSH SCH (10:06)
[2025-01-24] MEDS: Saccharomyces Boulardii (Probiotic) 250 MG Cap PO SCH (10:07)
[2025-01-24] MEDS: Magnesium Sulf/Wat 2 GM/50 mL 2 GM in Premix Bag 1 BAG IV ONE (10:07)
[2025-01-24] MEDS: WAT ONE (11:45)
[2025-01-24] MEDS: MAGNESIUM SULF ONE (11:45)
[2025-01-24] MEDS: Potassium Chloride 10 MEQ Tab.ER PO ONE (12:14)
[2025-01-24 16:17] VITALS: BP 146/58; PULSE 82
[2025-01-24] MEDS: Simethicone 80 MG Tab.Chew PO PRN (17:20)
[2025-01-24] MEDS: Levofloxacin 250 MG Tab PO ONE (19:05)
== END 2025-01-24 20:00 | disposition home or self-care (01) | DRG 389 ==
LOC: DL.ED 00:40 → UNDOADMIN 08:44 → DL.MS 08:44 → UNDODISIN 01-24 20:00
PROVIDERS: ADMIT Internal Medicine; ATTEND Internal Medicine
PROC: 0D9670Z Drainage of Stomach with Drainage Device, Via Natural or Artificial Opening (ICD-10-PCS; principal; 2025-01-23)
DX: K56.50 Intestinal adhesions [bands], unspecified as to partial versus complete obstruction (principal); C78.7 Secondary malignant neoplasm of liver and intrahepatic bile duct; C7A.1 Malignant poorly differentiated neuroendocrine tumors; K56.600 Partial intestinal obstruction, unspecified as to cause; I10 Essential (primary) hypertension; J45.909 Unspecified asthma, uncomplicated; E78.00 Pure hypercholesterolemia, unspecified; F32.A Depression, unspecified; E66.9 Obesity, unspecified; E88.09 Other disorders of plasma-protein metabolism, not elsewhere classified; E03.9 Hypothyroidism, unspecified; K21.9 Gastro-esophageal reflux disease without esophagitis; Z87.440 Personal history of urinary (tract) infections; Z68.31 Body mass index [BMI] 31.0-31.9, adult; Z79.1 Long term (current) use of non-steroidal anti-inflammatories (NSAID); Z90.710 Acquired absence of both cervix and uterus; Z98.890 Other specified postprocedural states; Z79.899 Other long term (current) drug therapy
CPT/HCPCS: 36415; 43752; 71045; 74018; 74177; 80053; 81001; 83605; 83735; 85025; 86140; 87086; 87088; 87186; 96361; 96374; 96375; 96376; 99284; 99285; A9270; J0696; J3010 ×4; J7120; Q9967; J2765; J3475; J7042

== ENCOUNTER 2025-02-05 11:04 | Inpatient (IN) | payer MEDICARE, BC ==
[2025-02-06] MEDS: FENTANYL IV SCH (13:58)
[2025-02-06] MEDS: SODIUM CHLORIDE 0.9% IV SCH (13:58)
[2025-02-06] MEDS ORDERED: Morphine 2 MG/ML SYRINGE IVPUSH PRN (14:09)
[2025-02-06] MEDS ORDERED: SODIUM CHLORIDE 0.9% IV SCH ×2 (14:15→22:15)
[2025-02-06] MEDS ORDERED: FENTANYL IV SCH ×2 (14:15→22:15)
[2025-02-06] MEDS: LORazepam 2 MG/ML SDV IVPUSH PRN ×2 (14:54→22:26)
[2025-02-06] MEDS: Morphine 2 MG/ML SYRINGE IVPUSH PRN ×2 (14:55→22:30)
[2025-02-06] MEDS: fentaNYL 50 MCG/HR Transdermal Patch TRDERM SCH (16:20)
[2025-02-06] MEDS: Scopalamine 1mg/3day Transdermal Patch TOP ONE (16:23)
[2025-02-06] MEDS: Scopalamine 1mg/3day Transdermal Patch ONE (16:26)
[2025-02-06] MEDS: Atropine 1% Ophth Soln 5 ML Bottle SL PRN (20:22)
[2025-02-06] MEDS ORDERED: Ondansetron 4 MG/2 ML SDV IVPUSH PRN (21:22)
[2025-02-06] MEDS: Check SCOPOLAMINE Patch TRDERM SCH (22:40)
[2025-02-07] MEDS: LORazepam 2 MG/ML SDV IVPUSH PRN (00:12)
[2025-02-07] MEDS: Morphine 2 MG/ML SYRINGE IVPUSH PRN (01:38)
[2025-02-07] MEDS ORDERED: Morphine 2 MG/ML SYRINGE IVPUSH PRN (08:54)
[2025-02-07] MEDS: fentaNYL 25 MCG/HR Transdermal Patch TRDERM SCH (09:59)
[2025-02-07] MEDS: Acetaminophen 650 MG Supp RECTAL PRN (10:58)
== END 2025-02-07 16:10 | disposition expired | DRG 951 ==
LOC: DL.MS 02-06 13:58
PROVIDERS: ADMIT Internal Medicine; ATTEND Internal Medicine
DX: Z51.5 Encounter for palliative care (principal); C7A.019 Malignant carcinoid tumor of the small intestine, unspecified portion; C7B.02 Secondary carcinoid tumors of liver; C7B.09 Secondary carcinoid tumors of other sites; N17.9 Acute kidney failure, unspecified; Z66 Do not resuscitate; I10 Essential (primary) hypertension; E03.9 Hypothyroidism, unspecified; J45.909 Unspecified asthma, uncomplicated; K21.9 Gastro-esophageal reflux disease without esophagitis; F32.A Depression, unspecified; E66.9 Obesity, unspecified; H91.90 Unspecified hearing loss, unspecified ear; E78.00 Pure hypercholesterolemia, unspecified; E83.42 Hypomagnesemia; E88.09 Other disorders of plasma-protein metabolism, not elsewhere classified; Z68.28 Body mass index [BMI] 28.0-28.9, adult; Z79.899 Other long term (current) drug therapy; Z79.2 Long term (current) use of antibiotics; Z90.710 Acquired absence of both cervix and uterus
CPT/HCPCS: 99223; 99238; A9270-GY; J2060; J2270; J3010; J7040